=== PATIENT | female | born 1975 | race African-American/Black ===

== ENCOUNTER 2017-04-08 20:03 | Emergency (ER) | payer OTHER ==
[2017-04-08 20:45] LABS: INFLUENZA A PATIENT POSITIVE (NEGATIVE); INFLUENZA B PATIENT NEGATIVE (NEGATIVE); OBC FLU VALID
== END 2017-04-08 21:38 | disposition home or self-care (01) ==
LOC: ER 20:03
DX: J09.X2 Influenza due to identified novel influenza A virus with other respiratory manifestations (principal); I10 Essential (primary) hypertension; Z87.440 Personal history of urinary (tract) infections; Z90.710 Acquired absence of both cervix and uterus
CPT/HCPCS: 71046; 87804; 87804-59; 99285-25

== ENCOUNTER 2018-02-25 00:52 | Emergency (ER) | payer OTHER ==
[~2018-02-25] VITALS: Ht 165.1 cm; Wt 120.2 kg
[~2018-02-25 00:52] MED LIST: BENZ100C PO; HYDR-2145 PO; OSEL75CA PO; PANT40TA5 PO
[2018-02-25 01:11] VITALS: BP 122/73
[2018-02-25] MEDS ORDERED: METH4TAB2 PO (01:21)
[2018-02-25] MEDS ORDERED: LEVO500T59 PO (01:21)
--- NOTE | 2018-02-25 01:22 | PHYS DOC ---
Past Medical History Past Medical History: Hypertension, UTI Past Surgical History: Hysterectomy Additional Past Surgical Histo: right arm, gastric sleeve Alcohol Use: Occasionally Drug Use: None Adult General Chief Complaint Chief Complaint: SORE THROAT HPI HPI Patient is a 42-year-old female who presents with complaint of cough, congestion , sore throat and bilateral ear pain for the last several days. Patient had been treated by her primary care doctor little after and symptoms had improved but now have returned and gotten worse. She denies any fever. Patient states that her throat hurts a lot she feels a lot of pressure in both of her ears. She denies any nausea or vomiting. Review of Systems Review of Systems Constitutional: Denies fever or chills [] Eyes: Denies change in visual acuity, redness, or eye pain [] HENT: [place] of congestion and sore throat [] Respiratory: Complains of cough without shortness of breath [] Cardiovascular: No additional information not addressed in HPI [] Allergies Allergies Allergies Coded Allergies Type Severity Reaction Last Updated Verified No Known Drug Allergies 10/31/14 No Physical Exam Physical Exam Constitutional: Well developed, well nourished, no acute distress, non-toxic appearance. [] HENT: Normocephalic, atraumatic, bilateral external ears normal, oropharynx demonstrates pharyngeal erythema without exudates, nose normal. [] Neck: Normal range of motion, no tenderness, supple, no stridor. [] Cardiovascular: Regular rate and rhythm[] Lungs & Thorax: Bilateral breath sounds clear to auscultation [] Skin: Warm, dry, no erythema, no rash. [] EKG EKG [] Radiology/Procedures Radiology/Procedures [] Course & Med Decision Making Course & Med Decision Making Pertinent Labs and Imaging studies reviewed. (See chart for details) [] Dragon Disclaimer Dragon Disclaimer This electronic medical record was generated, in whole or in part, using a voice recognition dictation system. Departure Departure Impression: Primary Impression: Sinusitis Disposition: 01 HOME, SELF-CARE Condition: STABLE Referrals: NO PCP (PCP) Patient Instructions: Sinusitis Scripts Methylprednisolone (MEDROL) 4 Mg Tab.ds.pk 1 PKG PO UD, #1 PKG Prov: JORDAN HANNAH Jr. DO 02/25/18 Levofloxacin (LEVAQUIN) 500 Mg Tablet 1 TAB PO DAILY, #10 TAB Prov: JORDAN HANNAH Jr. DO 02/25/18 Problem Qualifiers Primary Impression: Sinusitis Sinusitis location: unspecified location Chronicity: unspecified Qualified Codes: J32.9 - Chronic sinusitis, unspecified JORDAN HANNAH Jr. DO Feb 25, 2018 01:22
[2018-02-25] MEDS ORDERED: traMADol 50 MG TABLET PO ONE (02:30)
== END 2018-02-25 02:07 | disposition home or self-care (01) ==
LOC: ER 00:52
DX: J32.9 Chronic sinusitis, unspecified (principal); H92.03 Otalgia, bilateral; I10 Essential (primary) hypertension
CPT/HCPCS: 99283

== ENCOUNTER 2019-03-07 07:17 | Emergency (ER) | payer OTHER ==
[~2019-03-07] VITALS: Ht 165.1 cm; Wt 120.2 kg
[~2019-03-07 07:17] MED LIST changes: +LEVO500T59 PO; +METH4TAB2 PO; -PANT40TA5 PO; +PANT40TA77 PO
[2019-03-07] MEDS ORDERED: IV NORMAL SALINE 1000ML BAG 1,000 ML IV SCH (07:42)
[2019-03-07] MEDS ORDERED: ONDANSETRON PF 4 MG/2 ML VIAL. IV ONE (07:45)
[2019-03-07] MEDS ORDERED: MECLIZINE HCL 12.5 MG TABLET. PO ONE (07:45)
[2019-03-07 08:01] LABS: BASO % 1 % (0-3); EOS % 1 % (0-3); HEMOGLOBIN 13.1 g/dL (12.0-15.5); LYMPH # 1.3 x10^3/uL (1.0-4.8); LYMPH % 30 % (24-48); MEAN CORPUSCULAR HEMOGLOBIN 25 pg (25-35); MEAN CORPUSCULAR HGB CONC 33 g/dL (31-37); MEAN CORPUSCULAR VOLUME 77 fL (79-100); MONO # 0.3 x10^3/uL (0.0-1.1); MONO % 8 % (0-9); NEUT # 2.5 x10^3/uL (1.8-7.7); NEUT % 60 % (31-73); PLATELET COUNT 298 x10^3/uL (140-400); RED BLOOD COUNT 5.17 x10^6/uL (3.50-5.40); RED CELL DISTRIBUTION WIDTH 13.8 % (11.5-14.5); WHITE BLOOD COUNT 4.2 x10^3/uL (4.0-11.0)
[2019-03-07 08:08] LABS: CALCIUM 8.4 mg/dL (8.5-10.1); CREATININE 1.1 mg/dL (0.6-1.0); GFR 65.6; POTASSIUM 3.3 mmol/L (3.5-5.1)
[2019-03-07 08:15] LABS: ALBUMIN 3.1 g/dL (3.4-5.0); ALBUMIN/GLOBULIN RATIO 0.9 (1.0-1.7); TOTAL BILIRUBIN 0.2 mg/dL (0.2-1.0); TOTAL PROTEIN 6.7 g/dL (6.4-8.2)
--- NOTE | 2019-03-07 08:18 | PHYS DOC ---
Past Medical History Past Medical History: Hypertension, UTI Past Surgical History: Hysterectomy Additional Past Surgical Histo: right arm, gastric sleeve Alcohol Use: Occasionally Drug Use: None Adult General Chief Complaint Chief Complaint: DIZZY/LIGHT HEADED HPI HPI Patient is a 43 year old female patient with history of hypertension who presents with complaint of dizziness. Patient states she has had 1 episodes of dizziness/week for the last 3 weeks that usually last for 10-15 minutes and resolves spontaneously but since she woke up at 5 AM today she has had constant dizziness that getting worse with movements of her head. Patient complaining of nausea and frontal pressure headache without blurred vision. Patient complaining of shortness of breath and feeling of pain in left upper chest with taking a deep breath since this morning. Patient denies fever and chills, focal neuro deficit, vomiting, , recent dehydration or URI symptoms, head injury. Patient complaining of generalized weakness and not feeling good. Review of Systems Review of Systems Constitutional: Denies fever or chills [] Eyes: Denies change in visual acuity, redness, or eye pain [] HENT: Denies nasal congestion or sore throat [] Respiratory: Denies cough, reports shortness of breath [] Cardiovascular: No additional information not addressed in HPI [] GI: Denies abdominal pain, nausea, vomiting, bloody stools or diarrhea [] : Denies dysuria or hematuria [] Musculoskeletal: Denies back pain or joint pain [] Integument: Denies rash or skin lesions [] Neurologic: Reports dizziness and headache, focal weakness or sensory changes [] Endocrine: Denies polyuria or polydipsia [] All other systems were reviewed and found to be within normal limits, except as documented in this note. Current Medications Current Medications Current Medications Medications (Trade) Dose Ordered Sig/Deepti Start Time Stop Time Status Last Admin Dose Admin Meclizine HCl (Antivert) 25 mg 1X ONCE 03/07/19 07:45 03/07/19 07:46 DC 03/07/19 08:01 25 MG Ondansetron HCl (Zofran) 4 mg 1X ONCE 03/07/19 07:45 03/07/19 07:46 DC 03/07/19 08:01 4 MG Sodium Chloride 1,000 ml @ 1,000 mls/hr Q1H 03/07/19 07:42 03/07/19 08:41 DC 03/07/19 08:02 1,000 MLS/HR Allergies Allergies Allergies Coded Allergies Type Severity Reaction Last Updated Verified No Known Drug Allergies 10/31/14 No Physical Exam Physical Exam Constitutional: Well developed, well nourished, mild distress, non-toxic appearance, morbidly obese. [] HENT: Normocephalic, atraumatic, bilateral external ears normal, oropharynx moist, no oral exudates, nose normal. [] Eyes: PERRLA, EOMI, conjunctiva normal, no discharge. [] Neck: Normal range of motion, no tenderness, supple, no stridor. [] Cardiovascular:Heart rate regular rhythm, no murmur [] Lungs & Thorax: Bilateral breath sounds clear to auscultation [] Abdomen: Bowel sounds normal, soft, no tenderness, no masses, no pulsatile masses. [] Skin: Warm, dry, no erythema, no rash. [] Back: No tenderness, no CVA tenderness. [] Extremities: No tenderness, no cyanosis, no clubbing, ROM intact, no edema. [] Neurologic: Alert and oriented X 3, normal motor function, normal sensory function, no focal deficits noted. NIHS-0[] Psychologic: Affect normal, judgement normal, mood normal. [] Current Patient Data Vital Signs Vital Signs Date Time Temp Pulse Resp B/P (MAP) Pulse Ox O2 Delivery O2 Flow Rate FiO2 03/07/19 10:09 60 17 98 03/07/19 07:52 97.5 119/68 (85) Room Air 97.5 Lab Values Laboratory Tests Test 03/07/19 07:38 03/07/19 07:49 03/07/19 08:37 Urine Opiates Screen Neg (NEG) Urine Methadone Screen Neg (NEG) Urine Barbiturates Neg (NEG) Urine Phencyclidine Screen Neg (NEG) Urine Amphetamine/Methamphetamine Neg (NEG) Urine Benzodiazepines Screen Neg (NEG) Urine Cocaine Screen Neg (NEG) Urine Cannabinoids Screen Neg (NEG) Urine Ethyl Alcohol Neg (NEG) White Blood Count 4.2 x10^3/uL (4.0-11.0) Red Blood Count 5.17 x10^6/uL (3.50-5.40) Hemoglobin 13.1 g/dL (12.0-15.5) Hematocrit 40.0 % (36.0-47.0) Mean Corpuscular Volume 77 fL (79-100) L Mean Corpuscular Hemoglobin 25 pg (25-35) Mean Corpuscular Hemoglobin Concent 33 g/dL (31-37) Red Cell Distribution Width 13.8 % (11.5-14.5) Platelet Count 298 x10^3/uL (140-400) Neutrophils (%) (Auto) 60 % (31-73) Lymphocytes (%) (Auto) 30 % (24-48) Monocytes (%) (Auto) 8 % (0-9) Eosinophils (%) (Auto) 1 % (0-3) Basophils (%) (Auto) 1 % (0-3) Neutrophils # (Auto) 2.5 x10^3/uL (1.8-7.7) Lymphocytes # (Auto) 1.3 x10^3/uL (1.0-4.8) Monocytes # (Auto) 0.3 x10^3/uL (0.0-1.1) Eosinophils # (Auto) 0.0 x10^3/uL (0.0-0.7) Basophils # (Auto) 0.0 x10^3/uL (0.0-0.2) Sodium Level 140 mmol/L (136-145) Potassium Level 3.3 mmol/L (3.5-5.1) L Chloride Level 103 mmol/L (98-107) Carbon Dioxide Level 30 mmol/L (21-32) Anion Gap 7 (6-14) Blood Urea Nitrogen 11 mg/dL (7-20) Creatinine 1.1 mg/dL (0.6-1.0) H Estimated GFR (Cockcroft-Gault) 65.6 BUN/Creatinine Ratio 10 (6-20) Glucose Level 127 mg/dL (70-99) H Calcium Level 8.4 mg/dL (8.5-10.1) L Magnesium Level 2.0 mg/dL (1.8-2.4) Total Bilirubin 0.2 mg/dL (0.2-1.0) Aspartate Amino Transferase (AST) 12 U/L (15-37) L Alanine Aminotransferase (ALT) 10 U/L (14-59) L Alkaline Phosphatase 59 U/L (46-116) Creatine Kinase 92 U/L (26-192) Troponin I Quantitative < 0.017 ng/mL (0.000-0.055) MP-Mex-U-Type Natriuretic Peptide 17 pg/mL (0-124) Total Protein 6.7 g/dL (6.4-8.2) Albumin 3.1 g/dL (3.4-5.0) L Albumin/Globulin Ratio 0.9 (1.0-1.7) L Lipase 79 U/L (73-393) Urine Collection Type Unknown Urine Color Yellow Urine Clarity Cloudy Urine pH 8.5 Urine Specific [place] >=1.030 Urine Protein 30 mg/dL (NEG-TRACE) Urine Glucose (UA) Negative mg/dL (NEG) Urine Ketones (Stick) Negative mg/dL (NEG) Urine Blood Negative (NEG) Urine Nitrite Negative (NEG) Urine Bilirubin Negative (NEG) Urine Urobilinogen Dipstick 1.0 mg/dL (0.2 mg/dL) Urine Leukocyte Esterase Trace (NEG) Urine RBC 0 /HPF (0-2) Urine WBC Rare /HPF (0-4) Urine Squamous Epithelial Cells Few /LPF Urine Bacteria 0 /HPF (0-FEW) Laboratory Tests 03/07/19 07:49 Laboratory Tests 03/07/19 07:49 EKG EKG EKG interpreted by me. EKG at 0755 showed normal sinus rhythm at rate of 60, normal RI and QT intervals, inverted T in anteroseptal leads, no acute ST and T- wave elevation. Radiology/Procedures Radiology/Procedures [][facility] [address] [place], [place] [id number] IMAGING REPORT Signed PATIENT: KRISTOPHER REARDON DACCOUNT: [id number] : 1975 LOCATION: ER AGE: 43 SEX: F EXAM STATUS: REG ER ORD. PHYSICIAN: BRENTON PARRY MD REASON: dizziness and chest pain PROCEDURE: PORTABLE CHEST 1V PORTABLE CHEST 1V History: Dizziness, chest pain Comparison: April 08, 2017 Findings: Single view of the chest is submitted. There is no infiltrate, pneumothorax, or effusion. The pericardial cardiac silhouette is within normal limits in size. Impression: 1. There is no radiographic evidence of acute cardiopulmonary disease. Electronically signed by: Lavelle Zelaya MD (03/07/2019 8:37 AM) [facility] DICTATED and SIGNED BY: LAVELLE ZELAYA MD DATE: 03/07/1937 [facility] [address] [place] [address] IMAGING REPORT Signed PATIENT: KRISTOPHER REARDON DACCOUNT: [id number] : 1975 LOCATION: ER AGE: 43 SEX: F EXAM STATUS: REG ER ORD. PHYSICIAN: BRENTON PARRY MD REASON: dizziness PROCEDURE: CT HEAD WO CONTRAST CT HEAD WO CONTRAST History: Dizziness Comparison: August 11, 2004 Technique: Noncontrast CT imaging was performed of the head. Exposure: One or more of the following individualized dose reduction techniques were utilized for this examination: 1. Automated exposure control 2. Adjustment of the mA and/or kV according to patient size 3. Use of iterative reconstruction technique. Findings: No defined intracranial hemorrhage is identified. As seen on image 17 series 2, there is 1 cm focus of focus of slightly increased density of the left herbie comparing with the right with a slightly convex margin, no adjacent edema. Ventricular size is stable, within normal limits. Mejia-white differentiation of the major vascular territories is maintained. Impression: 1. There is a focus of slightly different density of the left herbie. Given lack of edema, this may be artifactual. However as underlying lesion is not excluded by CT, MRI may be beneficial to exclude underlying lesion. Electronically signed by: Lavelle Zelaya MD (03/07/2019 8:41 AM) [facility] DICTATED and SIGNED BY: LAVELLE ZELAYA MD DATE: 03/07/19840 Course & Med Decision Making Course & Med Decision Making Pertinent Labs and Imaging studies reviewed. (See chart for details) Evaluation of patient in ER showed 43-year-old male patient with complaining of episodes of dizziness that getting worse today. Patient had unremarkable physical exam and felt better with treatment in ER. Labs was unremarkable. P atient had questionable abnormality of herbie in CT of head with recommendation of MRI for more workup. I offered patient hospitalization or outpatient follow-up with her primary care physician and she decided to go home and follow up with her primary care physician. I've spoken with the patient and/or caregivers. I've explained the patient's condition, diagnosis and treatment plan based on information available to me at this time. I've answered the patient's and/or caregivers questions and addressed any concerns. The patient and/or caregivers have a good understanding the pat ient's diagnosis, condition and treatment plan as can be expected at this point. Vital signs have been stabilized. The patient's condition is stable for discharge from the emergency department. The patient will pursue further outpatient evaluation with her primary care provider or other designated consulting physician as outlined in the discharge instructions. Patient and/or caregivers are agreeable to this plan of care and follow-up instructions have been explained in detail. The patient and/or caregivers have received these instructions in written format and expressed understanding of these discharge instructions. The patient and her caregivers are aware that if any significant change in condition or worsening of symptoms should prompt him to immediately return to this of the closest emergency department. If an emergent department is not readily available I would encourage him to call 911. [place] Disclaimer Dragon Disclaimer This electronic medical record was generated, in whole or in part, using a voice recognition dictation system. Departure Departure Impression: Primary Impression: Benign positional vertigo Additional Impressions: Abnormal head CT Hypokalemia Disposition: HOME, SELF-CARE (at 0954) Condition: IMPROVED Referrals: NO PCP (PCP) Patient Instructions: Benign Positional Vertigo, Hypokalemia Additional Instructions: Drink plenty of liquids Follow-up with your primary care physician in 1-2 days for a MRI of brain b ecause of abnormal head CT Return to ER if not getting better Scripts Ondansetron Hcl (ZOFRAN) 4 Mg Tablet 1 TAB PO PRN Q6-8HRS for nausea, #12 TAB Prov: BRENTON PARRY MD 03/07/19 Meclizine Hcl (MECLIZINE HCL) 25 Mg Tablet 1 TAB PO TID for dizziness, #20 TAB Prov: BRENTON PARRY MD 03/07/19 NIHSS Stroke Scale NIH Stroke Scale: NIH Stroke Scale Response (Comments) Value Level of Consciousness: 0 Alert/Responsive 0 LOC Questions: 0 Answers both correctly 0 LOC Commands: 0 Performs both tasks 0 Best Gaze: 0 Normal 0 Visual: 0 No visual loss 0 Facial Palsy: 0 Normal, symmetrical 0 Motor - Left Arm 0 No drift 0 Motor - Right Arm 0 No drift 0 Motor - Left Leg 0 No drift 0 Motor: Right Leg 0 No drift 0 Limb Ataxia: 0 Absent 0 Sensory: 0 No loss 0 Best Language: 0 Normal 0 Dysathria: 0 Normal 0 Extinction and Inattention: 0 Normal 0 Total 0 Problem Qualifiers Primary Impression: Benign positional vertigo Laterality: unspecified laterality Qualified Codes: H81.10 - Benign paroxysmal vertigo, unspecified ear BRENTON PARRY MD Mar 07, 2019 08:18
--- NOTE | 2019-03-07 08:33 | EKG ---
[facility] [address] [place] [address] Test Date: 2019-03-07 Test Time: 07:55:56 Pat Name: KRISTOPHER REARDONDepartment: Room: Gender: F [employer]: : 1975 Requested By: BRENTON PARRY Order Number: [id number] Reading MD: Measurements Intervals [place] Rate: 60 P: 36 WA: 194 QRS: 1 QRSD: 88 T: 0 QT: 436 QTc: 440 Interpretive Statements SINUS RHYTHM T ABNORMALITY IN ANTERIOR LEADS ABNORMAL ECG No previous ECG available for comparison
[2019-03-07 08:34] LABS: BARBITURATES NEG (NEG); BENZODIAZEPINES NEG (NEG); CANNABINOIDS NEG (NEG); COCAINE NEG (NEG); METHADONE NEG (NEG); OPIATES NEG (NEG); PHENCYCLIDINE NEG (NEG)
[2019-03-07 08:35] LABS: AMPHETAMINE/METHAMPHETAMINE NEG (NEG)
--- NOTE | 2019-03-07 08:40 | RAD ---
PORTABLE CHEST 1V History: Dizziness, chest pain Comparison: April 08, 2017 Findings: Single view of the chest is submitted. There is no infiltrate, pneumothorax, or effusion. The pericardial cardiac silhouette is within normal limits in size. Impression: 1. There is no radiographic evidence of acute cardiopulmonary disease. Electronically signed by: Edward Zelaya MD (03/07/2019 8:37 AM) [id number]
--- NOTE | 2019-03-07 08:44 | RAD ---
CT HEAD WO CONTRAST History: Dizziness Comparison: August 11, 2004 Technique: Noncontrast CT imaging was performed of the head. Exposure: One or more of the following individualized dose reduction techniques were utilized for this examination: 1. Automated exposure control 2. Adjustment of the mA and/or kV according to patient size 3. Use of iterative reconstruction technique. Findings: No defined intracranial hemorrhage is identified. As seen on image 17 series 2, there is 1 cm focus of focus of slightly increased density of the left herbie comparing with the right with a slightly convex margin, no adjacent edema. Ventricular size is stable, within normal limits. Mejia-white differentiation of the major vascular territories is maintained. Impression: 1. There is a focus of slightly different density of the left herbie. Given lack of edema, this may be artifactual. However as underlying lesion is not excluded by CT, MRI may be beneficial to exclude underlying lesion. Electronically signed by: Edward Zelaya MD (03/07/2019 8:41 AM) [facility]
[2019-03-07] MEDS ORDERED: MECL25TA3 PO (09:58)
[2019-03-07] MEDS ORDERED: ONDA4TAB7 PO (09:58)
[2019-03-07 10:09] VITALS: BP 117/76
[2019-03-07 11:44] LABS: BILIRUBIN,URINE NEGATIVE (NEG); CLARITY,URINE CLOUDY; COLOR,URINE YELLOW
[2019-03-07 11:45] LABS: BACTERIA,URINE 0 /HPF (0-FEW); NITRITE,URINE NEGATIVE (NEG); PH,URINE 8.5; PROTEIN,URINE 30 mg/dL (NEG-TRACE); RBC,URINE 0 /HPF (0-2); SQUAMOUS EPITHELIAL CELL,UR FEW /LPF; WBC,URINE RARE /HPF (0-4)
== END 2019-03-07 10:33 | disposition home or self-care (01) ==
LOC: ER 07:17
DX: H81.10 Benign paroxysmal vertigo, unspecified ear (principal); E87.6 Hypokalemia; R94.02 Abnormal brain scan; I10 Essential (primary) hypertension; Z90.710 Acquired absence of both cervix and uterus; Z87.440 Personal history of urinary (tract) infections
CPT/HCPCS: 36415; 70450; 71045; 80053; 80307; 81001; 82550; 83690; 83735; 83880; 84484; 85025; 93005; 96361; 96374; 99285; J2405; J7030; J8597

== ENCOUNTER → 2019-03-16 | Outpatient (CLI) | payer OTHER ==
[2019-03-07 10:09] VITALS: BP 117/76
[~2019-03-16] MED LIST changes: +MECL-75 PO; +ONDA4TAB7 PO
--- NOTE | 2019-03-16 16:19 | KCIC ---
EXAMINATION: Magnetic resonance imaging (MRI) of the brain and brainstem without contrast 03/16/2019 3:30 PM HISTORY: Dizziness, vertigo TECHNIQUE: Multiplanar multi-weighted MRI of the brain and brainstem was performed without intravenous contrast using the general brain protocol. COMPARISON: None available. FINDINGS: The scalp and calvarium are normal. The superior sagittal sinus demonstrates normal venous flow. The corpus callosum is normal in shape and signal intensity. The posterior fossa is unremarkable. The pituitary and sella are normal. The brainstem and craniocervical junction are unremarkable. Simple unilocular cyst measuring 8 mm is identified in the inferior superficial left parotid lobe. Diffusion weighted images reveal no hyperintensities to suggest acute cerebral infarction. The susceptibility weighted sequences reveal no evidence of acute or chronic hemorrhage. The ventricles are normal in size and position without evidence of hydrocephalus. The paranasal sinuses are normal. The visualized portions of the mastoids are unremarkable. The orbits appear normal. Normal flow voids are demonstrated in the carotid arteries and basilar artery. IMPRESSION: 1. No evidence for acute or subacute ischemia. 2. 8 mm simple unilocular cyst is identified in the superficial left parotid gland. 3. No suspicious posterior fossa abnormality to account for patient's symptoms. 4. No pontine abnormality is suspected by CT. Electronically signed by: Joy Lopez MD (03/16/2019 4:16 PM) [id number]
== END | disposition home or self-care (01) ==
LOC: KCIC MRI 15:21
PROVIDERS: ATTEND Nurse Practitioner
DX: K11.6 Mucocele of salivary gland (principal); Z90.710 Acquired absence of both cervix and uterus
CPT/HCPCS: 70551